=== PATIENT | male | born 1985 | race African-American/Black ===

== ENCOUNTER 2019-11-13 10:10 | Emergency (ER) | payer OTHER ==
[~2019-11-13] VITALS: Ht 182.9 cm; Wt 54.4 kg
[2019-11-13 10:36] VITALS: BP 117/52
[2019-11-13] MEDS ORDERED: RALTEGRAVIR 400MG TABLET PO ONE (12:00)
[2019-11-13] MEDS ORDERED: EMTRICITABINE 200MG CAPSULE PO ONE (12:00)
[2019-11-13] MEDS ORDERED: TENOFOVIR 300MG TABLET PO ONE (12:00)
[2019-11-13 12:30] LABS: HEPATITIS B SURFACE ANTIGEN NEGATIVE
[2019-11-13 13:00] LABS: HEPATITIS A AB IGM NEGATIVE (NEGATIVE)
[2019-11-14 05:11] LABS: HIV SCREEN 4G Non Reactive (Non Reactive)
== END 2019-11-13 13:13 | disposition home or self-care (01) ==
LOC: ER 10:10
DX: S61.239A Puncture wound without foreign body of unspecified finger without damage to nail, initial encounter (principal); D64.9 Anemia, unspecified; Z88.2 Allergy status to sulfonamides; Z88.6 Allergy status to analgesic agent; W46.0XXA Contact with hypodermic needle, initial encounter; Y93.89 Activity, other specified; Y92.89 Other specified places as the place of occurrence of the external cause; Y99.8 Other external cause status
CPT/HCPCS: 36415; 86705; 86709; 86803; 87340; 87389; 99283

== ENCOUNTER → 2022-05-15 | Outpatient (CLI) | payer BC ==
[2022-05-15 12:39] LABS: BASOPHILS % 0.9 % (0.0-2.0); HEMATOCRIT. 42.4 % (42.0-52.0); HEMOGLOBIN. 14.1 g/dL (14.0-18.0); LYMPHOCYTES % 46.8 % (20.0-50.0); MEAN CORPUSCULAR HEMOGLOBIN 29.8 pg (28.0-32.0); MEAN CORPUSCULAR VOLUME 89.6 fL (80.0-94.0); MEAN PLATELET VOLUME 7.8 fl (7.4-10.4); MONOCYTES % 7.9 % (2.0-8.0); NEUTROPHILS % 43.4 % (40.0-76.0); PLATELET 311 x1000/uL (130-400); RED BLOOD CELL COUNT 4.74 mill/uL (4.7-6.1); RED CELL DISTRIBUTION WIDTH 12.4 % (11.6-14.6)
[2022-05-15 12:41] LABS: CLARITY URINE CLEAR (CLEAR); COLOR URINE YELLOW (YELLOW); KETONES URINE NEGATIVE (NEGATIVE); LEUKOCYTE ESTERASE URINE NEGATIVE (NEGATIVE); NITRITE URINE NEGATIVE (NEGATIVE); OCCULT BLOOD URINE NEGATIVE (NEGATIVE); PH URINE 6.5 (4.5-8.0); PROTEIN URINE NEGATIVE (NEGATIVE); SPECIFIC GRAVITY URINE 1.023 (1.005-1.030)
[2022-05-15 12:46] LABS: CHLORIDE 103 mEq/L (98-107)
== END | disposition home or self-care (01) ==
LOC: LAB 11:40
PROVIDERS: ATTEND Internal Medicine
DX: Z00.00 Encounter for general adult medical examination without abnormal findings (principal)
CPT/HCPCS: 36415; 80053; 81003; 83036; 85025

== ENCOUNTER → 2024-03-11 | Outpatient (CLI) | payer BC ==
[2024-03-11 13:11] LABS: BASOPHILS % 0.8 % (0.0-2.0); CHLORIDE 107 mEq/L (98-107); EOSINOPHILS % 1.2 % (0.0-5.0); HEMOGLOBIN. 13.4 g/dL (14.0-18.0); LYMPHOCYTES % 43.4 % (20.0-50.0); MEAN CORPUSCULAR HEMOGLOBIN 29.2 pg (28.0-32.0); MEAN CORPUSCULAR VOLUME 91.2 fL (80.0-94.0); MEAN PLATELET VOLUME 8.2 fl (7.4-10.4); MONOCYTES % 9.4 % (2.0-8.0); NEUTROPHILS % 45.2 % (40.0-76.0); PLATELET 316 x1000/uL (130-400); POTASSIUM 4.3 mEq/L (3.5-5.1); RED CELL DISTRIBUTION WIDTH 12.6 % (11.6-14.6); SODIUM 140 mEq/L (136-145); WHITE BLOOD COUNT 3.5 x1000/uL (4.5-11.0)
[2024-03-11 13:12] LABS: CALCIUM 10.1 mg/dL (8.7-10.4); CARBON DIOXIDE 28 mEq/L (21-32)
[2024-03-11 13:17] LABS: CREATININE 1.1 mg/dL (0.6-1.3); GLUCOSE 78 mg/dL (70-105); IRON 118 ug/dL (65-175); TRIGLYCERIDE 75 mg/dL (0-150)
[2024-03-11 13:18] LABS: LDL CHOLESTEROL 108 mg/dL (5-100); UREA NITROGEN BLOOD 13 mg/dL (9-23)
[2024-03-11 13:19] LABS: ALANINE AMINOTRANSFERASE 48 IU/L (10-49); ASPARTATE AMINOTRANSFERASE 22 IU/L (<34); CHOLESTEROL 174 mg/dL (<200); HDL CHOLESTEROL 61 mg/dL (>55)
[2024-03-11 13:20] LABS: BILIRUBIN TOTAL 1.9 mg/dL (0.1-1.0); PROTEIN TOTAL 7.8 g/dL (6.0-8.3); TOTAL IRON BINDING CAPACITY 237 ug/dl (250-425)
[2024-03-11 13:22] LABS: FERRITIN 90 ng/mL (22-322); FOLIC ACID (FOLATE) SERUM 18.81 ng/mL (>5.38)
[2024-03-11 13:23] LABS: T4 FREE 1.18 ng/dL (0.89-1.76); THYROID STIMULATING HORMONE 1.21 uIU/mL (0.55-4.78); VITAMIN B12 SERUM 543 pg/mL (211-911)
[2024-03-13 04:12] LABS: CHLAMYDIA TRACHOMATIS NAA Negative (Negative); NEISSERIA GONORRHOEAE NAA Negative (Negative)
== END | disposition home or self-care (01) ==
LOC: LAB 12:31
PROVIDERS: ATTEND Internal Medicine
DX: Z00.01 Encounter for general adult medical examination with abnormal findings (principal); D64.9 Anemia, unspecified; E11.9 Type 2 diabetes mellitus without complications; E55.9 Vitamin D deficiency, unspecified
CPT/HCPCS: 36415; 80053; 80061; 82306; 82607; 82728; 82746; 83036; 83540; 83550; 84439; 84443; 85025; 87491; 87591

== ENCOUNTER → 2025-01-01 | Outpatient (CLI) | payer BC ==
[2025-01-01 10:21] LABS: CHLORIDE 108 mEq/L (98-107); POTASSIUM 4.2 mEq/L (3.5-5.1); SODIUM 143 mEq/L (136-145)
[2025-01-01 10:22] LABS: CARBON DIOXIDE 29 mEq/L (21-32)
[2025-01-01 10:23] LABS: CALCIUM 9.9 mg/dL (8.7-10.4)
[2025-01-01 10:27] LABS: GLUCOSE 90 mg/dL (70-105); URIC ACID 5.2 mg/dL (3.7-9.2)
[2025-01-01 10:28] LABS: LDL CHOLESTEROL 102 mg/dL (5-100); TRIGLYCERIDE 64 mg/dL (0-150); UREA NITROGEN BLOOD 9 mg/dL (9-23)
[2025-01-01 10:29] LABS: ALANINE AMINOTRANSFERASE 131 IU/L (10-49); ALBUMIN 4.3 g/dL (3.2-4.8); ASPARTATE AMINOTRANSFERASE 90 IU/L (<34)
[2025-01-01 10:30] LABS: BILIRUBIN TOTAL 1.3 mg/dL (0.1-1.0); CHOLESTEROL 197 mg/dL (<200); HDL CHOLESTEROL 74 mg/dL (>55)
[2025-01-01 10:32] LABS: T4 FREE 1.09 ng/dL (0.89-1.76)
[2025-01-01 12:03] LABS: VITAMIN B12 SERUM 516 pg/mL (211-911)
[2025-01-02 09:11] LABS: HIV SCREEN 4G Non Reactive (Non Reactive)
[2025-01-03 07:09] LABS: CHLAMYDIA NUCL AC AMPLIFIC Negative (Negative)
== END | disposition home or self-care (01) ==
LOC: US 07:53
PROVIDERS: ATTEND Internal Medicine
DX: M47.817 Spondylosis without myelopathy or radiculopathy, lumbosacral region (principal); M48.07 Spinal stenosis, lumbosacral region; M41.86 Other forms of scoliosis, lumbar region; M16.0 Bilateral primary osteoarthritis of hip; I10 Essential (primary) hypertension; B20 Human immunodeficiency virus [HIV] disease; E03.9 Hypothyroidism, unspecified; E78.5 Hyperlipidemia, unspecified; M10.9 Gout, unspecified; E53.9 Vitamin B deficiency, unspecified; A64 Unspecified sexually transmitted disease; R10.2 Pelvic and perineal pain; M25.552 Pain in left hip; M25.551 Pain in right hip; N50.82 Scrotal pain; M54.50 Low back pain, unspecified; R22.9 Localized swelling, mass and lump, unspecified
CPT/HCPCS: 36415; 72100; 73521; 76857; 76870; 80053; 80061; 82607; 84439; 84443; 84550; 87389; 87491; 93976